=== PATIENT | female | born 1980 ===

== ENCOUNTER → 2019-11-06 | Outpatient (CLI) | payer OTHER ==
--- NOTE | 2019-11-06 09:25 | FL ---
Barium swallow HISTORY: Dysphagia Correlation CT scan 12/17/2018 54 seconds fluoroscopy time, 13 images obtained Patient was given high density barium to drink. Spot images were obtained. The swallowing mechanism is normal. There is no gastroesophageal reflux. No extrinsic or intrinsic es ophageal lesion identified. No evident hiatal hernia. Stomach as visualized is normal. IMPRESSION: Normal barium swallow
== END | disposition home or self-care (01) ==
LOC: RADUSWWP 08:00
PROVIDERS: ATTEND Surgery Plastic and Reconstructive Surgery
DX: R13.10 Dysphagia, unspecified (principal)
CPT/HCPCS: 74220

== ENCOUNTER → 2019-11-11 | Outpatient (CLI) | payer OTHER | END | disposition home or self-care (01) | LOC: LABWHC1 08:27 | PROVIDERS: ATTEND Surgery Plastic and Reconstructive Surgery | DX: Z11.59 Encounter for screening for other viral diseases (principal) | CPT/HCPCS: 87635 ==

== ENCOUNTER 2019-11-13 09:00 | Day surgery (SDC) | payer OTHER ==
[2019-11-11 15:49] VITALS: BMI 21.0
--- NOTE | 2019-11-12 19:34 | P.GSHP ---
History of Present Illness H&P Date: 11/13/19 CHIEF COMPLAINT: Dysphagia and hematochezia HISTORY OF PRESENT ILLNESS: The patient is a 39-year-old female who presents with dysphagia and hematochezia. Upper and lower endoscopy were offered for further evaluation and management. PAST MEDICAL HISTORY: Please see list. PAST SURGICAL HISTORY: Please see list. MEDICATIONS: Please see list. ALLERGIES: Please see list. SOCIAL HISTORY: No illicit drug use FAMILY HISTORY: No reports of Crohn disease or ulcerative colitis. REVIEW OF ORGAN SYSTEMS: CONSTITUTIONAL: No reports of fevers or chills. PHYSICAL EXAM: VITAL SIGNS: Stable GENERAL: Well-developed pleasant in no acute distress. HEENT: No scleral icterus. Extraocular movements grossly intact. Moist buccal mucosa. NECK: Supple without lymphadenopathy. CHEST: Unlabored respirations. Equal bilateral excursions. CARDIOVASCULAR: Regular rate and rhythm. Distal 2+ pulses. ABDOMEN: Soft, nondistended. MUSCULOSKELETAL: No clubbing, cyanosis, or edema. ASSESSMENT: 1. Dysphagia 2. Hematochezia PLAN: 1. Recommend proceeding with an upper and lower endoscopy Past Medical History Past Medical History: No Reported History Additional Past Medical History / Comment(s): HAS HAD STOMACH ACHE FOR PAST 7 YEARS PER PT History of Any Multi-Drug Resistant Organisms: None Reported Past Surgical History: No Surgical Hx Reported Past Anesthesia/Blood Transfusion Reactions: No Reported Reaction Additional Past Anesthesia/Blood Transfusion Reaction / Comment(s): NO PRIOR ANESTHESIA HX Smoking Status: Never smoker - Past Family History Mother Family Medical History: No Reported History Medications and Allergies Home Medications Medication Instructions Recorded Confirmed Type No Known Home Medications 11/11/19 11/11/19 History Allergies Allergy/AdvReac Type Severity Reaction Status Date / Time bismuth subsalicylate Allergy Rash/Hives Verified 11/11/19 15:35 [From Pepto-Bismol]
[~2019-11-13 09:00] MED LIST: LACTATED RINGERS 1,000 ML IV SCH
[2019-11-13 09:16] VITALS: TEMP 97.8
[2019-11-13] MEDS ORDERED: LACTATED RINGERS 1,000 ML IV ONE (09:16)
[2019-11-13] MEDS ORDERED: LIDOCAINE 1% (10MG/ML) FOR IV START INTRADERMA ONE (09:18)
[2019-11-13] MEDS ORDERED: LIDOCAINE 1% INJ 10MG/ML (20 ML MDV) ONE (10:16)
[2019-11-13] MEDS ORDERED: MIDAZOLAM 2 MG/2 ML VIAL ONE (10:16)
[2019-11-13] MEDS ORDERED: fentaNYL (PF) 50 MCG/ML 2 ML AMP ONE (10:16)
[2019-11-13] MEDS ORDERED: PROPOFOL 10 MG/ML 20 ML VIAL IV ONE (10:16)
--- NOTE | 2019-11-13 10:26 | P.HPADDEND ---
H&P Addendum H&P Addendum Date: 11/13/19 Patient reports hematochezia including epigastric abdominal pain and intermittent troubles with swallowing. We'll proceed with upper and lower endoscopy.
--- NOTE | 2019-11-13 10:28 | P.PCN ---
Date of Procedure: 11/13/19 Description of Procedure: PREOPERATIVE DIAGNOSIS: Hiatal hernia Dysphagia Epigastric abdominal pain POSTOPERATIVE DIAGNOSIS: Acute gastritis with recent bleeding OPERATION: Esophagogastroduodenoscopy with biopsies along antrum. SURGEON: Linda Wharton MD ANESTHESIA: MAC. INDICATIONS: The patient is a 39-year-old female who presents with a history of abdominal pain with dysphagia and hiatal hernia. Benefits and risks of the procedure were described. Informed consent was obtained. DESCRIPTION: The patient was brought into the endoscopy suite and laid in the left lateral decubitus position. An Olympus gastroscope was passed along the posterior oropharynx down to the distal esophagus where the squamocolumnar junction was encountered at 40 cm from the incisors. The stomach was entered and no bile reflux was found. Additional findings are listed below. Biopsies with cold forceps were obtained of the antrum. The first through third portion of the duodenum was examined and unremarkable. Retroflexion of the scope confirmed Hill grade 1 lower esophageal valve. The squamocolumnar junction demonstrated no LA grade A erosive esophagitis. The stomach was desufflated. The patient tolerated the procedure well. FINDINGS: Squamocolumnar junction 40 cm from the incisors. Diaphragmatic hiatus at 40 cm. Hill grade 1 lower esophageal valve. No LA grade A erosive esophagitis. No active duodenitis. Acute superficial gastritis of recent bleeding, cold forceps biopsies obtained RECOMMENDATIONS: Upper endoscopy as needed.
--- NOTE | 2019-11-13 10:40 | P.PCN ---
Date of Procedure: 11/13/19 Description of Procedure: PREOPERATIVE DIAGNOSIS: Hematochezia Abdominal pain Change in bowel habits POSTOPERATIVE DIAGNOSIS: Hematochezia Abdominal pain Change in bowel habits Colitis OPERATION: Colonoscopy to the ileocecal valve and appendiceal orifice. Colonoscopy with cold forceps biopsies for colitis SURGEON: Linda Wharton MD. ANESTHESIA: MAC. INDICATIONS: The patient is a 39-year-old female who presents with change in bowel habits, hematochezia and abdominal pain. Benefits and risks were described and informed consent was obtained. DESCRIPTION OF PROCEDURE: The patient had undergone Suprep. She had been brought into the operating room and laid in the left lateral decubitus position. After adequate intravenous sedation, the rectum was examined with 2% lidocaine jelly. No external hemorrhoids were encountered. The rectal tone was within normal limits. No lesions were palpated in the rectal vault. An Olympus colonoscope was advanced until the ileocecal valve and appendiceal orifice were clearly viewed. The prep was excellent with clear visualization of the mucosal folds. The scope was removed with visualization of each mucosal fold. Small lesions were identified along the cecum, biopsies obtained. No scattered diverticulosis was encountered. No colonic polyps were found. Retroflexion of the scope demonstrated grade 1 internal hemorrhoids without active bleeding or inflammation. The colon was desufflated. The patient had tolerated the procedure well. Withdrawal time was over 6 minutes. FINDINGS: Aronchick preparation quality scale 1 (1-5) Internal hemorrhoids, grade 1 No external prolapsed hemorrhoids. No arteriovenous malformations. No adenomatous polyps. Localized lymphoid aggregate at cecum with biopsies obtained No diverticulosis RECOMMENDATIONS: Lower endoscopy as needed Plan - Discharge Summary Discharge Rx Participant: No New Discharge Prescriptions: New Omeprazole [PriLOSEC] 40 mg PO DAILY #14 cap Discharge Medication List Omeprazole [PriLOSEC] 40 mg PO DAILY #14 cap 11/13/19 [Rx] Follow up Appointment(s)/Referral(s): Linda Wharton MD [STAFF PHYSICIAN] - 12/02/19 Patient Instructions/Handouts: Gastritis (DC) Discharge Disposition: HOME SELF-CARE
[2019-11-13 10:57] VITALS: BP 89/50; PULSE 64; RESP 18
== END 2019-11-13 11:37 | disposition home or self-care (01) ==
LOC: ORWHC2ENDO 09:00
PROVIDERS: ATTEND Surgery Plastic and Reconstructive Surgery
DX: K52.9 Noninfective gastroenteritis and colitis, unspecified (principal); K64.0 First degree hemorrhoids; K29.01 Acute gastritis with bleeding; K29.50 Unspecified chronic gastritis without bleeding; K44.9 Diaphragmatic hernia without obstruction or gangrene; Z88.8 Allergy status to other drugs, medicaments and biological substances
CPT/HCPCS: 81025; 88305; 45380; 43239; J2250; J2001; J3010; J2704

== ENCOUNTER → 2022-03-09 | Outpatient (CLI) | payer OTHER ==
--- NOTE | 2022-03-10 19:10 | MM ---
Reason for Exam: Screening (asymptomatic). Patient History: Menarche at age 14. First Full-Term at age 19. Premenopausal. Last menstrual period: 03/05/2022 Risk Values: Mery 5 year model risk: 0.4%. NCI Lifetime model risk: 7.3%. Tissue Density: There are scattered fibroglandular densities. Findings: Analyzed By CAD. There is no suspicious group of microcalcifications or new suspicious mass in either breast. Overall Assessment: Negative, BI-RAD 1 Management: Screening Mammogram of both breasts in 1 year. A clinical breast exam by your physician is recommended on an annual basis and results should be correlated with mammographic findings. Electronically signed and approved by: Kulwinder Leung DO
== END | disposition home or self-care (01) ==
LOC: RADMAMWWP 11:06
PROVIDERS: ATTEND Obstetrics & Gynecology
DX: Z12.31 Encounter for screening mammogram for malignant neoplasm of breast (principal)
CPT/HCPCS: 77063; 77067